=== PATIENT | male | born 1950 | race Caucasian/White ===

== ENCOUNTER 2020-07-15 16:29 | Emergency (ER) | payer MEDICARE, SELFPAY ==
--- NOTE | ~2020-07-15 | XR_ITS ---
EXAMINATION: XR wrist LT min 3V DATE: 07/15/2020 16:48 INDICATION: Generalized left wrist pain post fall onto outstretched hand TECHNIQUE: Posteroanterior, ulnar deviation, oblique, and lateral views of the left wrist were obtain ed. COMPARISON: none FINDINGS: Comminuted intra-articular fracture of the distal left radius with dorsal impaction resulting in 19 d egrees dorsal tilt of the distal articular surface. No significant fracture gap or incongruity apprec iated at the articular surface. There is linear sclerosis along the radial side of the distal ulna po tentially representing an additional nondisplaced impaction fracture. No other fractures identified. 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 Prominent cystic changes seen at the radial side of the lunate. Soft t issue swelling about the wrist. IMPRESSION: 1. Dorsally impacted comminuted intra-articular fracture of the distal left radius. 2. Possible additional nondisplaced distal ulnar subarticular impaction fracture. 3. 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 Reviewed, dictated and finalized at location A. IMPRESSION: 1. Dorsally impacted comminuted intra-articular fracture of the distal left rad ius. 2. Possible additional nondisplaced distal ulnar subarticular impaction fractur e. 3. 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
[2020-07-15 16:36] VITALS: BP 174/99; PULSE 58; RESP 16; TEMP 36.7; O2SAT 100
--- NOTE | 2020-07-15 16:41 | ED.UPPEXIN ---
HPI - Extremity Injury (Upper) General Chief Complaint: Extremity Injury, Upper Stated Complaint: Left wrist pain Time Seen by Provider: 07/15/20 16:41 Source: patient and RN notes reviewed History of Present Illness HPI narrative: Patient is a 69-year-old male who presents the urgent care with complaints of left wrist pain due to fall. Patient states that he tripped over his own feet today while outside and tried to catch himself with his left hand. Patient is left-hand dominant. Patient states that he has taken Tylenol after the injury occurred approximately 2 hours ago. Patient denies of any loss of consciousness or other injuries from the fall. Denies hitting his head. No other acute complaints. No acute distress noted. Patient aware of the plan of care. Some parts of this dictation were generated by voice recognition software and may contain typographical and/or grammatical inaccuracies. Related Data Home Medications Medication Instructions Recorded Confirmed aspirin 81 mg tablet,delayed 81 mg PO DAILY 04/01/19 07/15/20 release fluticasone propionate 50 2 spray NASAL DAILY PRN 03/28/20 07/15/20 mcg/actuation nasal spray,suspension loratadine 10 mg tablet 10 mg PO DAILY PRN 03/28/20 07/15/20 Allergies Allergy/AdvReac Type Severity Reaction Status Date / Time No Known Allergies Allergy Verified 07/15/20 16:43 Review of Systems Review of Systems: Narrative: CONSTITUTIONAL: Denies fever, chills, or sweats. EYES: Denies visual changes, redness, or discharge. ENT: Denies rhinorrhea, congestion, sore throat, or otalgia. CARDIOVASCULAR: Denies chest pain, palpitations, or edema. RESPIRATORY: Denies cough or dyspnea. GASTROINTESTINAL: Denies abdominal pain, nausea, vomiting, or diarrhea. GENITOURINARY: Denies dysuria or hematuria. SKIN: Denies rash or itching. MUSCULOSKELETAL: Reports of left wrist pain and swelling NEUROLOGIC: Denies headache, numbness, or weakness. All other systems reviewed are negative, except as documented in HPI. [facility] Past Medical History Medical History (Updated 07/15/20 @ 17:07 by ALENA Amos) Essential (primary) hypertension Surgical History Surgical History History of cholecystectomy History of inguinal hernia repair Family History Family History Mother Family history of malignant neoplasm of breast in first degree relative Family history of malignant neoplasm of urinary bladder Family history of diabetes mellitus in first degree relative Father Hypertension Family history of dementia Family history of heart disease in male family member before age 55 Social History Social History Smoking status: Never smoker Alcohol intake: never Comments At the time of my signature, I reviewed and agree with the nursing past medical, surgical, social, and family history. There is no relevant family history pertinent to the patient complaint. Exam Narrative: Exam Narrative: GENERAL: This is a well-nourished, well-developed patient, in no apparent distress. HEAD: normocephalic, atraumatic. EYES: PERRL. Sclera clear/white. Vision is grossly intact. EARS: External ears normal NOSE: External nose normal with no obvious nasal discharge, nares without redness, no rhinorrhea. THROAT: Mucous membranes moist NECK: Neck supple, SKIN: warm, intact with no suspicious lesions or rash, good texture and turgor. NEURO: awake, alert, and oriented to person, place and time. There were no obvious focal neurologic abnormalities. EXTREMITIES: Possible deformity noted to the distal left radius with tenderness and mild ecchymosis extending into the dorsal left hand. Positive strong left radial pulse with capillary refill less than 2 seconds. Pain exacerbated with internal rotation of the left upper extremity and making a fist
== END 2020-07-15 17:10 | disposition home or self-care (01) ==
PROVIDERS: Emergency Provider Nurse Practitioner Family
DX: S52.572A Other intraarticular fracture of lower end of left radius, initial encounter for closed fracture (principal); S52.602A Unspecified fracture of lower end of left ulna, initial encounter for closed fracture; W01.0XXA Fall on same level from slipping, tripping and stumbling without subsequent striking against object, initial encounter; I10 Essential (primary) hypertension
CPT/HCPCS: 29125; 73110; 99214; A4565; G0463

== ENCOUNTER 2020-07-15 20:49 | Emergency (ER) | payer MEDICARE, SELFPAY ==
[2020-07-15 21:03] VITALS: BP 201/96; PULSE 64; RESP 18; TEMP 36.9; O2SAT 97
--- NOTE | 2020-07-15 21:24 | ED.UPPEXIN ---
HPI - Extremity Injury (Upper) General Chief Complaint: Extremity Injury, Upper <Roxane Guerra PA-C - Last Filed: 07/15/20 22:21> Stated Complaint: arm pain <KARRIE Rubio Last Filed: 07/15/20 22:21> Time Seen by Provider: 07/15/20 21:05 <Roxane Guerra PA-C - Last Filed: 07/15/20 22:21> Source: patient <KARRIE Rubio Last Filed: 07/15/20 22:21> Mode of arrival: ambulatory <KARRIE Rubio Last Filed: 07/15/20 22:21> Limitations: no limitations <KARRIE Rubio Last Filed: 07/15/20 22:21> History of Present Illness HPI narrative: This is a 69 year old male that presents to the ER for left wrist pain. Reports he was seen at Urgent care today for a left wrist fracture after a fall and placed in a splint. He took his prescribed pain medication without relief so presented to the ER. Denies numbness. <Roxane Guerra PA-C - Last Filed: 07/15/20 22:21> Related Data Allergies/Adverse Reactions: Allergies Allergy/AdvReac Type Severity Reaction Status Date / Time No Known Allergies Allergy Verified 07/15/20 21:37 <Roxane Guerra PA-C - Last Filed: 07/15/20 22:21> Review of Systems Review of Systems: Narrative: CONSTITUTIONAL: Denies fever MUSCULOSKELETAL: Reports joint pain, and myalgia. NEUROLOGIC: Denies numbness <Roxane Guerra PA-C - Last Filed: 07/15/20 22:21> All systems reviewed & are unremarkable except as noted in HPI and below <Roxane Guerra PA-C - Last Filed: 07/15/20 22:21> [facility] Past Medical History Medical History: Medical History (Updated 07/16/20 @ 00:00 by Background Daemon) History of hypertension History of seasonal allergies <KARRIE Rubio Last Filed: 07/15/20 22:21> Exam Narrative: Exam Narrative: GENERAL: Well-appearing, well-nourished, and in mild acute distress due to pain. HEAD: Normocephalic, atraumatic. EYES: EOMI. EXTREMITIES: Left wrist in volar splint. Normal radial pulses. Normal capillary refill. Normal sensation SKIN: Warm, dry, no rash. NEURO: No focal deficits. Alert and oriented x3. PSYCH: Normal mood and affect <Roxane Guerra PA-C - Last Filed: 07/15/20 22:21> Course Course Emergency Course: After patient departure they called back in the pharmacy for which the [place] was sent to did not have any [place] refill. They requested medication be sent would reversal a prescription was sent. <Sean Duarte MD - Last Filed: 07/16/20 00:04> Vital Signs Vital signs: Vital Signs Temperature 98.5 F 07/15/20 21:03 Pulse Rate 64 07/15/20 21:03 Respiratory Rate 18 07/15/20 21:03 Blood Pressure 201/96 H 07/15/20 21:03 Pulse Oximetry 97 07/15/20 21:03 Temperature 98.0 F 07/15/20 23:02 Pulse Rate 82 07/15/20 23:02 Respiratory Rate 16 07/15/20 23:02 Blood Pressure 148/95 H 07/15/20 23:02 Pulse Oximetry 98 07/15/20 23:02 <Roxane Guerra PA-C - Last Filed: 07/15/20 22:21> Vital Signs Temperature 98.5 F 07/15/20 21:03 Pulse Rate 64 07/15/20 21:03 Respiratory Rate 18 07/15/20 21:03 Blood Pressure 201/96 H 07/15/20 21:03 Pulse Oximetry 97 07/15/20 21:03 Temperature 98.0 F 07/15/20 23:02 Pulse Rate 82 07/15/20 23:02 Respiratory Rate 16 07/15/20 23:02 Blood Pressure 148/95 H 07/15/20 23:02 Pulse Oximetry 98 07/15/20 23:02 <Sean Duarte MD - Last Filed: 07/16/20 00:04> MDM - Extremity Injury (Upper) MDM Narrative Medical decision making narrative: Patient presents the emergency department for left wrist pain. Was seen at urgent care and diagnosed with distal radius fracture. Placed in a volar splint. Reports increasing pain tonight, he did not have any relief with prescribed tramadol. Patient has normal capillary refill, normal sensation. Normal radial pulses. I did loosen the Randy wrap with improvement in his pain. He was also given a dose of morphine. He is to
[2020-07-15] MEDS: MORPHINE SULFATE INJ (*CRX) 10 MG/ML AMP 5 MG IM (21:37)
[2020-07-15] MEDS: diazePAM INJ (*CRX) 10 MG/2 ML SYRINGE 5 MG IM (22:34)
[2020-07-15 23:02] VITALS: BP 148/95; PULSE 82; RESP 16; TEMP 36.7; O2SAT 98
== END 2020-07-15 23:03 | disposition home or self-care (01) ==
PROVIDERS: Emergency Provider Emergency Medicine; PCP Family Medicine
DX: S52.502D Unspecified fracture of the lower end of left radius, subsequent encounter for closed fracture with routine healing (principal); I10 Essential (primary) hypertension; W19.XXXD Unspecified fall, subsequent encounter
CPT/HCPCS: 96372; 99284; J2270; J3360

== ENCOUNTER 2021-04-03 09:02 | Outpatient (CLI) | payer MEDICARE, SELFPAY ==
--- NOTE | ~2021-04-03 | US_ITS ---
EXAMINATION: [facility] EXAM DATE: 04/03/2021 09:51 INDICATION: Z13.6 - Encounter for screening for cardiovascular disorders. TECHNIQUE: Multiple grayscale and Doppler images of the abdominal aorta were obtained (by a technolog ist who performed the scan) and subsequently reviewed. There is no prior study for comparison. FINDINGS: Abdominal aorta is normal in caliber. Evidence of minimal atherosclerosis. Common iliac arteries are also normal in caliber. IMPRESSION: Minimal aortic atherosclerosis. No aneurysm. Reviewed, dictated and finalized at location G. HIDE TRIMMER
--- NOTE | ~2021-04-03 | US_ITS ---
EXAMINATION: US carotid duplex BI EXAM DATE: 04/03/2021 09:51 INDICATION: Arterial sclerosis. TECHNIQUE: Grayscale, color and pulsed Doppler images of the cervical carotid arteries were obtained . The degree of vessel stenosis is placed in one of the following categories: normal, <50% stenosis, 50-69% stenosis, >=70% stenosis but less than near-occlusion, near-occlusion, or occlusion. Note that percent stenosis relative to normal distal artery lumen diameter is indirectly measured from velocit y measurements as described by Kartik, et al. Radiology 2003; 229:340-346. There is no prior study fo r comparison. FINDINGS: Occasional arrhythmia with occasional prolonged diastolic periods. Recommend correlating wi th EKG. RIGHT SIDE: Right common carotid artery peak systolic velocity (PSV in cm/s): 76 Right bulb/internal carotid artery peak systolic velocity (PSV in cm/s): 58 Right internal carotid artery end diastolic velocity (EDV in cm/s): 21 Right ICA/CCA peak systolic ratio: 0.8 Right external carotid artery peak systolic velocity (PSV in cm/s): 82 Right vertebral artery antegrade flow: yes There is no focal plaque identified. LEFT SIDE: Left common carotid artery peak systolic velocity (PSV in cm/s): 56 Left bulb/internal carotid artery peak systolic velocity (PSV in cm/s): 59 Left internal carotid artery end diastolic velocity (EDV in cm/s): 27 Left ICA/CCA peak systolic ratio: 1.2 Left external carotid artery peak systolic velocity (PSV in cm/s): 65 Left vertebral artery antegrade flow: yes There is no focal plaque identified. IMPRESSION: 1. Normal right internal carotid artery. 2. Normal left internal carotid artery. 3. Arrhythmia. Correlate with EKG. > Reviewed, dictated and finalized at location G. MECHANIC
== END 2021-04-03 09:03 | disposition home or self-care (01) ==
PROVIDERS: PCP Family Medicine; Visit Provider Nurse Practitioner
DX: Z13.6 Encounter for screening for cardiovascular disorders (principal); R06.02 Shortness of breath; R42 Dizziness and giddiness
CPT/HCPCS: 76706; 93880

== ENCOUNTER 2021-07-26 09:07 | Outpatient (CLI) | payer MEDICARE, SELFPAY ==
[2021-07-26 10:12] LABS: Anion Gap 7 mmol/L (8-16); Blood Urea Nitrogen 9 mg/dL (9-20); Calcium 8.7 mg/dL (8.4-10.2); Carbon Dioxide 28 mmol/L (22-30); Chloride 101 mmol/L (98-107); Estimated Glomerular Filt Rate > 60; Glucose 93 mg/dL (65-110); Potassium 3.2 mmol/L (3.4-5.0); Sodium 136 mmol/L (137-145)
== END 2021-07-26 09:08 | disposition home or self-care (01) ==
LOC: ANHSURGERY 09:10
PROVIDERS: Anesthesiology; PCP Family Medicine; Visit Provider Orthopaedic Surgery
DX: Z01.818 Encounter for other preprocedural examination (principal); Z79.899 Other long term (current) drug therapy
CPT/HCPCS: 36415; 80048

== ENCOUNTER 2021-08-01 00:32 | Day surgery (SDC) | payer MEDICARE, SELFPAY ==
[2021-07-20 15:25] VITALS: BMI 30.1
--- NOTE | 2021-07-20 15:42 | PC.NURSE ---
Report to the Outpatient Waiting Room, entrance under the green pavilion located off [facility], at time __0600__ on date _08/01/21_. OR Time: __729__. - You and your visitor will be asked a series of questions to screen for COVID 19 for your protection. - Only one visitor is allowed at this time. - The patient visitor is requested to leave or wait in car when not with patient. - A mask is required within the hospital. Patients may have clear liquids (water, carbonated beverages, clear teas, apple juice) until 3 hours prior to surgery (0430 AM) with a maximum of 20 ounces. - No food from midnight until time of surgery Take the following medications with a SIP of water the morning of surgery: _CARVEDILOL, NASAL SPRY _ Medications to discontinue per physician N/A__Date last dose Please no make-up, nail upper sorbian, hairspray, perfume, deodorant, or body powder the day of surgery. No jewelry (including any body piercings) or valuables the day of surgery, leave them at home. Please take a shower or bath the night before, or the morning of, surgery with an antibacterial soap. Wear comfortable, loose fitting clothing. - Jewelry must be removed prior to entering the operating room. Rings and piercings that are not removed may be cut off. - The hospital will not accept responsibility for valuables. - Please leave all valuables, including medications, at home the day of surgery. If you are going home after surgery, a licensed class c truck driver must drive you home. - NO public transportation without another adult. - We recommend that an adult stay with you for 24 hours following discharge. - We also recommend that you do not drive, make important decision, drink alcoholic beverages, or take any drugs that were not prescribed by your health care provider for at least 24 hours after your discharge time. Follow any additional instructions given to you from your surgeon. If you or anyone in your household have experienced Covid symptoms in the past week, please notify your surgeon or the nurse liaison at the phone number below for possible testing. Telephone instructions given to PT and asked if any additional questions and then verbalized understanding. Patient advised to call surgeon office or pre surgery nurse liaison [phone] if any additional questions.
--- NOTE | 2021-07-31 14:11 | P.PNAN_ITS ---
Anes - Initial Pre Proc Eval Procedure: Operation Date: 08/01/21 07:30 Proposed Procedures p Left Carpal Tunnel Release - Sterling Tellez MD Date/Time: 07/31/21 14:11 Surgeon: Sterling Tellez MD Pre Op Diagnosis: Lt Carpal Tunnel Syndrome Patient Data Age: 70 Gender: M Height: 1.84 m Weight: 102.27 kg Allergies Allergy/AdvReac Type Severity Reaction Status Date / Time No Known Allergies Allergy Verified 08/01/21 06:06 Home Medications Medication Instructions Recorded Confirmed Type fluticasone propionate 50 1 spray INTRANASAL DAILY 07/20/21 07/20/21 History mcg/actuation nasal spray,suspension hydrochlorothiazide 12.5 mg PO QAM 07/20/21 07/20/21 History loratadine 10 mg tablet 10 mg PO DAILY 07/20/21 07/20/21 History carvedilol 25 mg tablet 25 mg PO BID #180 tablet 07/31/21 Rx Patient hx anesthesia problems: none Family hx anesthesia problems: none Results Review: All pre-operative results and documents have been reviewed as part of the pre-operative evaluation. [facility] Past Medical History Medical History Distal radius fracture, left Essential (primary) hypertension History of hypertension History of seasonal allergies Seasonal allergies Surgical History Surgical History History of cholecystectomy (~2007) History of inguinal hernia repair (~2009) Family History Family History Mother Family history of malignant neoplasm of breast in first degree relative Family history of malignant neoplasm of urinary bladder Family history of diabetes mellitus in first degree relative Father Hypertension Family history of dementia Family history of heart disease in male family member before age 55 Other Breast cancer Diabetes mellitus Social History Social History Smoking status: Never smoker Second hand tobacco smoke exposure: No Alcohol intake: never Substance use: never Substance use type: does not use Living arrangements: with family Gender identity (if verbalized by the patient): Male Spiritual care concerns: No Anes - Eval Final PreProcedure Day of Procedure 07/31/21 14:11 Patient weight: overweight Heart: regular rate and rhythm Lungs: clear to auscultation Airway: Mallampati scale Neurological: alert and oriented Last oral intake: >/= 8 hours ASA classification: II Emergent: no Anesthetic plan: proceed Anesthesia type and monitoring: general GIVS and standard monitoring Results Review: All pre-operative results and documents have been reviewed as part of the pre-operative evaluation. Informed Consent: The patient's anesthetic plan and its attendant risks and benefits were discussed with the patient/family/POA. Questions were solicited and answers provided to the satisfaction of the patient/family/POA.
[2021-08-01] MEDS: CELECOXIB 200 MG CAPSULE PO (06:35)
[2021-08-01] MEDS: ACETAMINOPHEN 500 MG TABLET 1000 MG PO (06:35)
[2021-08-01] MEDS: LACTATED RINGERS 1,000 ML 30 ML IV CONT (06:40)
[2021-08-01 07:00] VITALS: BP 147/89; PULSE 56; RESP 16; TEMP 36.2; O2SAT 96
--- NOTE | 2021-08-01 07:24 | WPDHPUPDATE1 ---
History and Physical Update Update Date/Time: 08/01/21 07:24 History and Physical has been reviewed, including an updated exam of the patient. There are NO changes in the patient's condition. Risks, benefits, and alternatives have been discussed and questions answered. Patient agrees to proceed with procedure.
[2021-08-01] MEDS: ceFAZolin 2 GM/D5W 50 ML 2 GM/50 ML BAG IVPB (07:29)
[2021-08-01] MEDS: BUPIVACAINE HCL 0.5% PF 30 ML VIAL INFILTRATE (07:54)
[2021-08-01 08:24] VITALS: BP 121/71; PULSE 55; RESP 20; O2SAT 98
--- NOTE | 2021-08-01 08:31 | W.PM.PROC2 ---
Procedure Note - Detailed Date of Procedure 08/01/21 Pre-op Diagnosis Lt Carpal Tunnel Syndrome Post-op Diagnosis Same Procedure Performed LEFT CTR Surgeon Sterling Tellez MD Anesthesia General Description of Procedure THE LEFT UPPER EXTREMITY WAS PREPPED AND DRAPED IN THE STERILE FASHION. THE CARPAL TUNNEL WAS MARKED FROM THE FLEXED RING FINGER. THE TORNEQUET WAS INFLATED. THE INCISION WAS MADE AT THE MID PALM DOWN THROUGH THE SUBCUTANEOUS TISSUES. THE PALMAR FASCIA WAS IDENTIFIED. AN INCISION WAS MADE THROUGH THE PALMAR FASCIA UNTIL THE CARPAL TUNNEL WAS ENTERED. A MOSQUITO HEMOSTAT WAS USED TO PROTECT THE MEDIAN NERVE WHILE THE INCISION TO THE PALMAR FASCIA WAS COMPLETE PROXIMALLY AND DISTALLY TO THE CARDINAL LINE. NEXT, THE TRANSVERSE CARPAL LIGAMENT WAS IDENTIFIED. A FREIER ELEVATOR WAS USED TO SEPARATE THE NERVE FROM THE LIGAMENT. A METZENBAUM SCISSORS WAS THEN USED TO INCISE THE TRANSVERSE CARPAL LIGAMENT UNTIL THERE WAS A COMPLETE RELEASE OF THE CARPAL TUNNEL. THE MEDIAN NERVE WAS INTACT. THE TOURNEQUET WAS DEFLATED. THE BLEEDERS WERE CAUTERIZED. THE WOUND WAS WASHED. THE SKIN WAS APPROXIMATED WITH 4-0 NYLON SUTURE. STERILE DRESSING WAS APPLIED. PATIENT WAS EXTUBATED AND SENT TO THE RECOVERY ROOM. Estimated Blood Loss 5 Complications No immediate complications Condition Stable Disposition PACU
[2021-08-01 08:50] VITALS: BP 138/80; PULSE 52; RESP 20
[2021-08-01 09:20] VITALS: BP 129/89; PULSE 84; RESP 20
[2021-08-01] MEDS: oxyCODONE HCL (*CRX) 5 MG TAB IR PO (09:27)
== END 2021-08-01 09:35 | disposition home or self-care (01) ==
PROVIDERS: PCP Family Medicine; Visit Provider Orthopaedic Surgery
PROC: (CPT 64721; principal; 2021-08-01 07:30)
DX: G56.02 Carpal tunnel syndrome, left upper limb (principal); I10 Essential (primary) hypertension
CPT/HCPCS: 64721; 36415; 80048; A9270; J0690; J1100; J2405; J2704; J3010; J7120

== ENCOUNTER 2024-04-06 07:03 | Outpatient (CLI) | payer MEDICARE, SELFPAY ==
[2024-04-06 19:39] LABS: Basophils Absolute Auto 0.1 K/mm3 (0.0-0.1); Basophils Percent Auto 1.7 % (0.2-1.2); Eosinophils Absolute Auto 0.2 K/mm3 (0-0.3); Eosinophils Percent Auto 4.4 % (0-4.4); Hematocrit 45.1 % (42.0-52.0); Hemoglobin 15.1 g/dL (14.0-18.0); Immature Granulocyte Absolute 0.01 K/mm3 (0.00-0.031); Immature Granulocyte Percent A 0.2 % (0-0.5); Lymphocytes Absolute Auto 1.32 K/mm3 (0.9-3.2); Lymphocytes Percent Auto 25.4 % (18.3-44.2); Mean Corpuscular HGB Conc 33.5 g/dl (32-36); Mean Corpuscular Hemoglobin 30.1 pg (26-34); Mean Platelet Volume 9.6 fl (7.4-10.4); Monocytes Absolute Auto 0.5 K/mm3 (0.1-0.6); Monocytes Percent Auto 9.1 % (2.6-8.5); Neutrophils Absolute Auto 3.1 K/mm3 (1.3-6.7); Neutrophils Percent Auto 59.2 % (45.5-73.1); Platelet Count Result 282 k/mm3 (150-375); Red Blood Count 5.01 M/mm3 (4.6-6.20); Red Cell Distribution Width 12.7 % (11.5-14.5); White Blood Count 5.2 K/mm3 (4.5-10.0)
[2024-04-06 20:32] LABS: LDL Cholesterol Direct 91 mg/dL
[2024-04-06 20:35] LABS: Bilirubin,Total 0.7 mg/dL (0.2-1.3); Blood Urea Nitrogen 14 mg/dL (9-20); Chloride 99 mmol/L (98-107); Cholesterol 152 mg/dL (0-200); HDL Direct 41 mg/dL; Potassium 4.2 mmol/L (3.4-5.0); Sodium 137 mmol/L (137-145); Triglycerides 103 mg/dL (<150)
[2024-04-06 20:37] LABS: Alanine Aminotransferase 25 U/L (6-50); Albumin Level 4.3 g/dL (3.5-5.1); Alkaline Phosphatase 60 U/L (38-126); Anion Gap 8 mmol/L (4-12); Aspartate Amino Transferase 44 U/L (17-59); Carbon Dioxide 30 mmol/L (22-30); Estimated Glomerular Filt Rate > 60; Glucose 105 mg/dL (65-110)
[2024-04-06 20:50] LABS: Prostate Specific Antigen 0.4 ng/mL (< OR = 4.0)
== END 2024-04-06 07:04 | disposition home or self-care (01) ==
LOC: ANHBWCLAB 07:04
PROVIDERS: PCP Nurse Practitioner Adult Health; Visit Provider Nurse Practitioner Adult Health
DX: Z12.5 Encounter for screening for malignant neoplasm of prostate (principal); I10 Essential (primary) hypertension
CPT/HCPCS: 36415; 80053; 80061; 84153; 85025; G0103

== ENCOUNTER 2024-10-14 07:03 | Outpatient (CLI) | payer MEDICARE, SELFPAY ==
[2024-10-14 20:11] LABS: Alanine Aminotransferase 24 U/L (6-50); Albumin Level 4.3 g/dL (3.5-5.1); Alkaline Phosphatase 64 U/L (38-126); Anion Gap 7 mmol/L (4-12); Aspartate Amino Transferase 56 U/L (17-59); Bilirubin,Total 0.8 mg/dL (0.2-1.3); Blood Urea Nitrogen 9 mg/dL (9-20); Calcium 9.2 mg/dL (8.4-10.2); Carbon Dioxide 30 mmol/L (22-30); Chloride 99 mmol/L (98-107); Cholesterol 178 mg/dL (0-200); Estimated Glomerular Filt Rate > 60; Glucose 106 mg/dL (65-110); HDL Direct 38 mg/dL; Potassium 3.9 mmol/L (3.4-5.0); Sodium 136 mmol/L (137-145); Total Protein 7.4 g/dL (6.3-8.2); Triglycerides 95 mg/dL (<150)
== END 2024-10-14 07:04 | disposition home or self-care (01) ==
PROVIDERS: PCP Nurse Practitioner Adult Health; Visit Provider Nurse Practitioner Adult Health
DX: I10 Essential (primary) hypertension (principal)
CPT/HCPCS: 36415; 80053; 80061